=== PATIENT | female | born 1960 | race Caucasian/White ===

== ENCOUNTER 2016-09-11 06:40 | Day surgery (SDC) | payer OTHER ==
[2016-09-11 07:09] VITALS: BMI 34.3
[2016-09-11] MEDS ORDERED: Propofol 10 mg/ml Inj (20 ML) ONE (08:42)
--- NOTE | 2016-09-11 08:44 | CP.SDSHP ---
Same Day Surgery H & P - History Proposed Procedure: COLONSCOPY Pre-Op Diagnosis: SEE NOTES - Previous Medical/Surgical History Cardiac: Hypertension Endocrine/Metabolic: Diabetes, Other Pain: 4.Moderate Pain - Allergies Allergies: Allergies No Known Allergies Allergy (Verified 09/11/16 07:09) - Physical Exam General Appearance: N Vital Signs: Vital Signs 09/11/16 09/11/16 07:27 08:35 Temperature 97.1 F L 97.1 F L Pulse Rate 80 80 Respiratory 16 16 Rate Blood Pressure 122/71 122/71 O2 Sat by Pulse 97 97 Oximetry Mental Status: Alert & Oriented x3 Neuro: WNL Heart: Other Lungs: WNL GI: Other - {Optional Preform as Required} Breast: WNL Abdomen: Other Rectal: Other Integument: WNL : WNL Ortho: Other ENT: WNL - Impression Pt. Evaluated Today:Candidate for Anesthesia & Procedure: Yes - Date & Time Time: 08:44 Short Stay Discharge - Short Stay Discharge Admitting Diagnosis/Reason for Visit: HEMORRHAGE OF ANUS AND RECTUM Disposition: HOME/ ROUTINE
[2016-09-11] MEDS ORDERED: Lactated Ringer's 1,000 ML IV SCH (08:45)
[2016-09-11] MEDS ORDERED: Belladonna-Phenobarbital PO STA (08:45)
[2016-09-11] MEDS ORDERED: Pantoprazole 40 mg EC Tab PO STA (08:45)
[2016-09-11] MEDS ORDERED: Lidocaine Hydrochloride 5 ML INJ ONE (08:47)
[2016-09-11 10:06] VITALS: PULSE 66
[2016-09-11 10:22] VITALS: BP 110/59; RESP 13; TEMP 98; O2SAT 97
== END 2016-09-11 10:10 | disposition home or self-care (01) ==
LOC: C.ENDO 06:40
PROVIDERS: ATTEND Specialist
DX: R10.9 Unspecified abdominal pain (principal); D12.4 Benign neoplasm of descending colon; K64.8 Other hemorrhoids
CPT/HCPCS: 45384; 82948; 88305; J2704; J3010; J7120